=== PATIENT | male | born 1965 | race African-American/Black ===

== ENCOUNTER 2019-05-04 12:06 | Observation (INO) | payer MEDICARE, MEDICAID ==
[~2019-05-04] VITALS: Ht 180.3 cm; Wt 131.5 kg
[~2019-05-04 12:06] MED LIST: ABILIFY5 MG ORAL; ATORVASTATIN CA20 MG ORAL; CYMBALTA30 MG ORAL; DEPAKOTE250 MG PO; IBUPROFEN200 MG ORAL; LEVOTHYROXINE100 MC1 PO; LISINOPRIL5 MG ORAL; LITHIUM CARBON300 MG ORAL; RANITIDINE HCL150 MG ORAL; TRAMADOL HCL50 MG ORAL
--- NOTE | 2019-05-04 12:34 | NUR ---
ED Nurse Note: Pt walked into ED w/ c/o swelling in bilat hands and feet 2+. Pt has lump R hand. Pt is alert and orientedx4, ambulatory. Pt has pain 6/10 bilateral feet. Pt states he is homeless.
[2019-05-04 13:05] VITALS: BP 144/81
[2019-05-04 13:39] LABS: BASOPHILS % (AUTO) 2.4 % (0.0-2.0); EOSINOPHILS % (AUTO) 2.6 % (0.0-3.0); HEMATOCRIT 39.3 % (42.0-52.0); HEMOGLOBIN 13.1 G/DL (14.2-18.0); LYMPHOCYTES % (AUTO) 46.9 % (20.0-45.0); MEAN CORPUSCULAR VOLUME 87 FL (80-99); MONOCYTES % (AUTO) 7.8 % (1.0-10.0); NEUTROPHILS % (AUTO) 40.3 % (45.0-75.0); PLATELET COUNT 277 K/UL (150-450); RED BLOOD COUNT 4.54 M/UL (4.70-6.10); RED CELL DISTRIBUTION WIDTH 13.6 % (11.6-14.8); WHITE BLOOD COUNT 7.7 K/UL (4.8-10.8)
--- NOTE | 2019-05-04 13:50 | Diagnostic Imaging Report ---
Indication: Cough Technique: One view of the chest Comparison: 04/25/2019 Findings: Lungs and pleural spaces are clear. Heart size is normal. No significant interim change Impression: No acute process
--- NOTE | 2019-05-04 13:53 | NUR ---
ED Nurse Note: US initiated at bedside.
[2019-05-04 14:38] LABS: ANION GAP 11 mmol/L (5-15); BLOOD UREA NITROGEN 11 mg/dL (7-18); CALCIUM 8.9 MG/DL (8.5-10.1); CARBON DIOXIDE 28 MMOL/L (21-32); CHLORIDE 102 MMOL/L (98-107); CREATININE 0.9 MG/DL (0.55-1.30); POTASSIUM 4.4 MMOL/L (3.5-5.1); SODIUM 141 MMOL/L (136-145)
--- NOTE | 2019-05-04 14:45 | Diagnostic Imaging Report ---
Indication: Abdominal distention Technique: Us-scale and duplex images of the upper abdomen were obtained Comparison: none Findings: Exam is somewhat limited due to patient body habitus. Gallbladder is unremarkable, without stones, wall thickening, nor pericholecystic fluid. Sonographic Alejandre's sign is negative. Common bile duct measures 3 mm in diameter. No intrahepatic biliary ductal dilatation. Liver demonstrates diffusely increased echogenicity, consistent with diffuse hepatocellular disease, most likely fatty change. Portal vein and hepatic veins are patent. Pancreas is obscured by bowel gas. Spleen is unremarkable. Left kidney measures 12.9 cm in length. Right kidney measures 10 cm length. Both kidneys demonstrate normal echogenicity. There is no hydronephrosis. Small cysts are seen in the kidneys bilaterally . Abdominal aorta is partially obscured by bowel gas, visualized portions are non-aneurysmal . Impression: Limited exam, as described. Note nonvisualization of the pancreas and portions of the abdominal aorta Liver demonstrates diffusely increased echogenicity, consistent with diffuse hepatocellular disease, most likely fatty change. Negative for gallstones or dilated bile ducts Incidental finding small bilateral renal cysts
[2019-05-04 14:48] LABS: ALANINE AMINOTRANSFERASE 24 U/L (12-78); ALBUMIN 3.5 G/DL (3.4-5.0); ALBUMIN/GLOBULIN RATIO 0.8 (1.0-2.7); ALKALINE PHOSPHATASE 80 U/L (46-116); ASPARTATE AMINO TRANSFERASE 16 U/L (15-37); BILIRUBIN,TOTAL 0.3 MG/DL (0.2-1.0); CREATINE KINASE 149 U/L (26-308)
[2019-05-04 15:05] VITALS: BP 146/77
--- NOTE | 2019-05-04 15:14 | History and Physical ---
History of Present Illness General Date patient seen: May 04, 2019 Reason for Hospitalization: Edema Present Illness HPI 54 year old obese male with history of HTN, HLD, hypothyroidism and bipolar disorder sent in by his PCP Dr. Graves for evaluation of peripheral edema and weigh gain of 22 pounds over a short couple of months. Patient is homeless and lives in his car with his sister who has schizophrenia. His elderly parents whom they took care of recently . Patient denies any chest pain, sob , orthopnea, PND, palpitations, syncope, n/v/d. He feels like he is getting more and more swollen. He has chronic back pain for which he is taking Ultram and ibuprofen. In the ER he was in no distress, VSS, received Lasix. labs and imagining ordered and admitted for further work up. Past medical and surgical history: HTN, HLD, hypothyroidism, bipolar disorder, Social history: denies smoking, etoh or illicit drug use Family history: Sister: Schizophrenia Allergies: Coded Allergies: NAPROXEN (Unverified Allergy, Unknown, 11/14/13) PROPOXYPHENE (Unverified Allergy, Unknown, 11/14/13) Medication History Scheduled Aripiprazole* (Abilify*), 5 MG ORAL DAILY, (Reported) Atorvastatin Calcium* (Atorvastatin Calcium*), 20 MG ORAL BEDTIME, (Reported) Divalproex Sodium* (Depakote*), 250 MG PO TID Duloxetine Hcl* (Cymbalta*), 30 MG ORAL DAILY Scheduled PRN Tramadol Hcl* (Ultram*), 50 MG ORAL Q6H PRN for For Pain, (Reported) Discontinued Medications Ibuprofen (Ibuprofen*), 800 MG ORAL, (Reported) Discontinued Reason: Therapy completed Levothyroxine Sodium* (Levothyroxine Sodium*), 50 MCG PO DAILY, (Reported) Discontinued Reason: Therapy completed Lisinopril (Lisinopril*), 10 MG ORAL DAILY, (Reported) Discontinued Reason: Therapy completed [place] Carbonate* ([place]*), 300 MG ORAL ONCE Discontinued Reason: Therapy completed Ranitidine Hcl* (Zantac*), 300 MG ORAL DAILY, (Reported) Discontinued Reason: Therapy completed Patient History Healthcare decision maker Resuscitation status Advanced Directive on File Review of Systems Constitutional: Reports: weakness Eye: Denies: no symptoms, see HPI, eye pain, blurred vision, tearing, double vision, nose pain, nose congestion, acuity changes, discharge, other ENT: Denies: no symptoms, see HPI, ear pain, ear discharge, nose pain, nose congestion, throat pain, throat swelling, mouth pain, hearing loss, nasal discharge, other Respiratory: Denies: no symptoms, see HPI, cough, orthopnea, shortness of breath, stridor, wheezing, GEE, sputum, other Cardiovascular: Reports: edema Gastrointestinal: Denies: no symptoms, see HPI, abdominal pain, constipation, diarrhea, nausea, vomiting, melena, hematemesis, other Genitourinary: Denies: no symptoms, see HPI, discharge, dysuria, frequency, hematuria, pain, retention, incontinence, urgency, vag bleed/dc, other Musculoskeletal: Denies: no symptoms, see HPI, back pain, gout, joint pain, joint swelling, muscle pain, muscle stiffness, other Skin: Denies: no symptoms, see HPI, rash, change in color, change in hair/nails , dryness, lesions, other Psychiatric: Denies: no symptoms, see HPI, prior hx, anxiety, depressed feelings, emotional problems, SI, HI, hallucinations, other Neurological: Denies: no symptoms, see HPI, headache, numbness, paresthesia, seizure, tingling, tremors, focal weakness, syncope, dizziness, other Endocrine: Reports: other - weight gain 20 lbs Hematologic/Lymphatic: Denies: no symptoms, see HPI, anemia, blood clots, easy bleeding, easy bruising, swollen glands, diathesis, other Physical Exam General Appearance: no apparent distress, obese, morbidly obese Lines, tubes and drains: peripheral HEENT: normocephalic, atraumatic, anicteric, mucous membranes moist, PERRL, EOMI, no JVD Neck: non-tender, supple Respiratory/Chest: chest wall non-tender, lungs clear, normal breath sounds, no respiratory distress, no accessory muscle use Cardiovascular/Chest: normal peripheral pulses, normal rate, regular rhythm Abdomen: normal bowel sounds, non tender, soft, no organomegaly, no mass, other - obese Extremities: normal range of motion, non-tender, normal inspection, moderate edema, pitting, other - non tender bilateral calf, no erythema Skin Exam: normal pigmentation Neurologic: screen tender II-XII grossly normal, no motor/sensory deficits, oriented x 3 , responsive Musculoskeletal: normal muscle bulk Last 24 Hour Vital Signs Date Time Temp Pulse Resp B/P (MAP) Pulse Ox O2 Delivery O2 Flow Rate FiO2 05/04/19 13:05 97.9 87 18 144/81 96 Room Air 05/04/19 13:05 87 18 Room Air 05/04/19 12:10 97.9 87 18 130/75 (93) 96 Room Air Laboratory Tests Test 05/04/19 13:10 White Blood Count 7.7 K/UL (4.8-10.8) Red Blood Count 4.54 M/UL (4.70-6.10) L Hemoglobin 13.1 G/DL (14.2-18.0) L Hematocrit 39.3 % (42.0-52.0) L Mean Corpuscular Volume 87 FL (80-99) Mean Corpuscular Hemoglobin 28.9 PG (27.0-31.0) Mean Corpuscular Hemoglobin Concent 33.3 G/DL (32.0-36.0) Red Cell Distribution Width 13.6 % (11.6-14.8) Platelet Count 277 K/UL (150-450) Mean Platelet Volume 7.0 FL (6.5-10.1) Neutrophils (%) (Auto) 40.3 % (45.0-75.0) L Lymphocytes (%) (Auto) 46.9 % (20.0-45.0) H Monocytes (%) (Auto) 7.8 % (1.0-10.0) Eosinophils (%) (Auto) 2.6 % (0.0-3.0) Basophils (%) (Auto) 2.4 % (0.0-2.0) H Sodium Level 141 MMOL/L (136-145) Potassium Level 4.4 MMOL/L (3.5-5.1) Chloride Level 102 MMOL/L (98-107) Carbon Dioxide Level 28 MMOL/L (21-32) Anion Gap 11 mmol/L (5-15) Blood Urea Nitrogen 11 mg/dL (7-18) Creatinine 0.9 MG/DL (0.55-1.30) Estimat Glomerular Filtration Rate > 60 mL/min (>60) Glucose Level 118 MG/DL (74-106) H Calcium Level 8.9 MG/DL (8.5-10.1) Total Bilirubin 0.3 MG/DL (0.2-1.0) Aspartate Amino Transf (AST/SGOT) 16 U/L (15-37) Alanine Aminotransferase (ALT/SGPT) 24 U/L (12-78) Alkaline Phosphatase 80 U/L (46-116) Total Creatine Kinase 149 U/L (26-308) Troponin I 0.000 ng/mL (0.000-0.056) Pro-B-Type Natriuretic Peptide 7 pg/mL (0-125) Total Protein 7.7 G/DL (6.4-8.2) Albumin 3.5 G/DL (3.4-5.0) Globulin 4.2 g/dL Albumin/Globulin Ratio 0.8 (1.0-2.7) L Height (Feet): 5 Height (Inches): 11.00 Weight (Pounds): 295 Objective Narrative cxr: No acute process US abdomen pelvis: Fatty liver, no gallstones, incidental bilateral renal cysts EKG personally interpreted by me: NSR at81 bpm, RBBB, Qtc 476 Assessment/Plan Problem List: (1) Bilateral lower extremity edema ICD Codes: R60.0 - Localized edema SNOMED: 05571299, 98712617, 173225801 (2) HTN (hypertension) ICD Codes: I10 - Essential (primary) hypertension SNOMED: 35658170 (3) HLD (hyperlipidemia) ICD Codes: E78.5 - Hyperlipidemia, unspecified SNOMED: 94485142 (4) Bipolar disorder ICD Codes: F31.9 - Bipolar disorder, unspecified SNOMED: 10691291 (5) Hypothyroidism ICD Codes: E03.9 - Hypothyroidism, unspecified SNOMED: 64038217 (6) Obesity, morbid, BMI 40.0-49.9 ICD Codes: E66.01 - Morbid (severe) obesity due to excess calories SNOMED: 598233815, 217207790, 16346783178287 Status: stable Assessment/Plan: 54 year old male admitted with bilateral lower extremity edema and weight gain of 22 lbs over a short period. His labs so far are not impressive and don't suggest acute heart failure or low albumin state such as acute nephrotic syndrome. His cxr showed no acute process. Abdominal US revealed fatty liver. Less common however could be related to NSAIDs side effect. ddx includes chronic venous stasis disease, pulmonary hypertension, renal or liver disease, related to his hypothyroidism. #Bilateral lower extremity edema and 22 lbs weight gain Doppler bilateral lower extremities to rule out DVT/obstruction Liver function tests Thyroid function tests Prothrombin time 2D echocardiogram if all above negative imagining will obtain imagining of the pelvis to exclude venous outflow obstruction #Hypothyroidism continue Synthroid 50 mcg daily for now, may need to adjust based on TFTs especially since he is on [place] #HTN continue lisinopril 10mg daily #HLD continue Lipitor 10 check CK levels #Bipolar disorder/depression continue Cymbalta 60, Depakote 250 mg TID, [place] 300 mg QD, Abilify 5 mg daily check Depakote and lithium levels currently stable #Chronic lower back pain continue Tramadol Hold NSAIDs vte ppx:SCD and heparin subq q12 hr Diet: Low salt SW consult for placement I spent 70 minutes on this encounter. Greater than 50% spent on counselling and care coordination. Plan of care discussed with patient, ED physician, and his PCP Dr. Edgar Graves. Darrius Fleming M.D. May 04, 2019 15:14
--- NOTE | 2019-05-04 16:10 | NUR ---
ED Nurse Note: social sciences chair at bedside.
--- NOTE | 2019-05-04 16:20 | NUR ---
Social Work This SW received a consult due to homelessness. This SW met with patient, currently in the ED (who will be admitted due to swelling of his legs/feet). Patient appears pleasant and cooperative, alert/oriented x4, independent with ambulation/ADLs and does not require any DME. Patient explains he receives SSI over 900 dollars per month, but has spent this money down. This Sw advised Board/Care, Transitional housing or Shared housing once he has received his full months check (beginning of next month). Patient in agreement with [facility] placement (list of shelters and housing options provided to patient). Patient currently does not verbalize any substance abuse or mental health concerns (currently does not verbalize any depression or SI/HI). Patient has adequate amount of clothing. Pending progress; SW to follow further as needed. Nursing to assist with bus card upon discharge, according to patients choice of destination. No other needs or concerns present at this time.
--- NOTE | 2019-05-04 19:17 | NUR ---
HAND-OFF: Report given to MARIPOSA Duvall. no orders to carry at this moment. waiting for doppler.
[2019-05-04] MEDS ORDERED: Lisinopril 10mg tab ORAL ONE (20:00)
[2019-05-04] MEDS ORDERED: Atorvastatin 20mg tab ORAL ONE (20:00)
[2019-05-04] MEDS ORDERED: DULoxetine 30mg cap ORAL ONE (20:00)
[2019-05-04] MEDS ORDERED: traMADol 50mg tab ORAL ONE (20:00)
--- NOTE | 2019-05-04 20:05 | NUR ---
ED Nurse Note: Pt requesting his at home meds, Dr Roldan contacted and verbal order given for one time doses for medications in med rec.
[2019-05-04 20:36] VITALS: BP 138/70
--- NOTE | 2019-05-04 20:55 | NUR ---
TRANSFER TO FLOOR: Patient transferred to as ordered, per Dr Spicer. Report given to MARIPOSA Celeste. Belongings and medications given to . Family and or S/O informed of transfer.
--- NOTE | 2019-05-04 21:30 | NUR ---
NURSE NOTES: Admitted patient awake, alert, verbal, ambulatory, no SOB, with essentially normal vital signs.
[2019-05-04 21:47] VITALS: BP 136/78
[2019-05-04] MEDS ORDERED: Zolpidem 5mg tab ORAL PRN (22:15)
[2019-05-04] MEDS ORDERED: LORazepam 1mg tab ORAL PRN (22:15)
[2019-05-04] MEDS ORDERED: traMADol 50mg tab ORAL PRN ×2 (22:15)
[2019-05-04] MEDS ORDERED: Acetaminophen 650 MG SUPP RECTAL PRN ×2 (22:15)
[2019-05-04] MEDS ORDERED: Miralax 17gm pkt ORAL PRN (22:15)
[2019-05-04] MEDS ORDERED: Nitroglycerin Subl 0.4mg tab SL PRN (22:15)
[2019-05-04] MEDS ORDERED: Metoclopramide 10mg/2ml Inj IVP PRN (22:15)
[2019-05-04] MEDS ORDERED: Milk of Magnesia 30ml Ud ORAL PRN (22:15)
[2019-05-05 00:38] VITALS: BP 122/71
[2019-05-05 04:00] VITALS: BP 114/68
[2019-05-05 06:42] LABS: APPEARANCE,URINE CLEAR; BILIRUBIN, URINE NEGATIVE (NEGATIVE); COLOR,URINE PALE YELLOW; GLUCOSE, URINE (UA) NEGATIVE (NEGATIVE); KETONES,URINE NEGATIVE (NEGATIVE); LEUKOCYTE ESTERASE ,URINE NEGATIVE (NEGATIVE); NITRITE,URINE NEGATIVE (NEGATIVE); PH,URINE 7 (4.5-8.0); PROTEIN,URINE NEGATIVE (NEGATIVE); UROBILINOGEN,URINE NORMAL MG/DL (0.0-1.0)
[2019-05-05 06:57] LABS: BASOPHILS % (AUTO) 0.9 % (0.0-2.0); EOSINOPHILS % (AUTO) 2.9 % (0.0-3.0); HEMATOCRIT 38.8 % (42.0-52.0); HEMOGLOBIN 13.1 G/DL (14.2-18.0); MEAN CORPUSCULAR VOLUME 87 FL (80-99); MONOCYTES % (AUTO) 10.8 % (1.0-10.0); NEUTROPHILS % (AUTO) 43.4 % (45.0-75.0); PLATELET COUNT 269 K/UL (150-450); RED BLOOD COUNT 4.46 M/UL (4.70-6.10); RED CELL DISTRIBUTION WIDTH 13.4 % (11.6-14.8); WHITE BLOOD COUNT 7.6 K/UL (4.8-10.8)
[2019-05-05 07:16] LABS: ALANINE AMINOTRANSFERASE 26 U/L (12-78); ALBUMIN 3.3 G/DL (3.4-5.0); ALBUMIN/GLOBULIN RATIO 0.8 (1.0-2.7); ALKALINE PHOSPHATASE 83 U/L (46-116); ANION GAP 6 mmol/L (5-15); ASPARTATE AMINO TRANSFERASE 16 U/L (15-37); BILIRUBIN,TOTAL 0.4 MG/DL (0.2-1.0); BLOOD UREA NITROGEN 14 mg/dL (7-18); CARBON DIOXIDE 31 MMOL/L (21-32); CHLORIDE 102 MMOL/L (98-107); POTASSIUM 4.6 MMOL/L (3.5-5.1); SODIUM 139 MMOL/L (136-145)
--- NOTE | 2019-05-05 07:17 | NUR ---
HAND-OFF: Report given to Hanh Flanagan LVN.
--- NOTE | 2019-05-05 07:25 | NUR ---
NURSE NOTES: Received report from MARIPOSA Davila. Patient A/A/Ox4. verbally responsive, ambulatory, no SOB or distress noted. consumed 100% breakfast. call light is within reach. bed is in the lowest position. siderails are up x3. bed alarm engaged and locked. will cont to monitor.
[2019-05-05 08:00] VITALS: BP 131/72
[2019-05-05] MEDS: Docusate 100mg cap ORAL SCH ×2 (08:16→20:54)
[2019-05-05] MEDS: oxyCODONE 5mg IR tab ORAL PRN (08:16)
[2019-05-05] MEDS: Heparin 5000 units/ml inj SUBQ SCH ×2 (08:20→20:54)
[2019-05-05 10:09] LABS: CHOLESTEROL 140 MG/DL (< 200); HDL CHOLESTEROL 57 MG/DL (40-60); TRIGLYCERIDES 68 MG/DL (30-150)
[2019-05-05 10:46] LABS: CREATINE KINASE 198 U/L (26-308)
[2019-05-05 11:57] VITALS: BP 119/71
--- NOTE | 2019-05-05 12:05 | NUR ---
PT note Attempted to see patient for eval/tx but patient has an order for venous duplex to BLE's. This has not been done yet. Will wait for results of the venous duplex prior to implementing PT eval/tx. RN was notified.
--- NOTE | 2019-05-05 14:56 | Diagnostic Imaging Report ---
EXAM: US Duplex Bilateral Lower Extremity Veins CLINICAL HISTORY: WEAK TECHNIQUE: Real-time duplex ultrasound scan of the bilateral lower extremity veins integrating B-mode two-dimensional vascular structure, Doppler spectral analysis, color flow Doppler imaging and compression. COMPARISON: No relevant prior studies available. FINDINGS: Right deep veins: Unremarkable. No DVT in the right common femoral, femoral, proximal deep femoral or popliteal veins. The veins demonstrate normal color flow, are normally compressible, with normal phasic flow and/or augmentation response. Right superficial veins: Unremarkable. Left deep veins: Unremarkable. No DVT in the left common femoral, femoral, proximal deep femoral or popliteal veins. The veins demonstrate normal color flow, are normally compressible, with normal phasic flow and/or augmentation response. Left superficial veins: Unremarkable. Soft tissues: No popliteal cyst. IMPRESSION: Unremarkable bilateral lower extremity duplex venous ultrasound.
[2019-05-05 16:00] VITALS: BP 130/75
--- NOTE | 2019-05-05 17:49 | NUR ---
NURSE NOTES: Dr Roldan made aware of the lithium 300mg qdaily stated by patient that is not on the list. PMD will f/u. will cont to monitor.
--- NOTE | 2019-05-05 19:13 | NUR ---
HAND-OFF: Report given to
[2019-05-05 20:01] VITALS: BP 109/75
--- NOTE | 2019-05-05 20:13 | NUR ---
NURSE NOTES: Received patient awake, alert, verbal, ambulatory, resting in bed comfortably without complaints.
--- NOTE | 2019-05-05 20:38 | General Progress Note ---
Assessment/Plan Status: stable Assessment/Plan: 54 year old male admitted with bilateral lower extremity edema and weight gain of 22 lbs over a short period. His labs so far are not impressive and don't suggest acute heart failure or low albumin state such as acute nephrotic syndrome. His cxr showed no acute process. Abdominal US revealed fatty liver. Less common however could be related to NSAIDs side effect. ddx includes chronic venous stasis disease, pulmonary hypertension, renal or liver disease, related to his hypothyroidism. #Bilateral lower extremity edema and 22 lbs weight gain Doppler bilateral lower extremities to rule out DVT/obstruction Liver function tests Thyroid function tests Prothrombin time 2D echocardiogram if all above negative imagining will obtain imagining of the pelvis to exclude venous outflow obstruction #Hypothyroidism continue Synthroid 50 mcg daily for now, may need to adjust based on TFTs especially since he is on [place] #HTN continue lisinopril 10mg daily #HLD continue Lipitor 10 check CK levels #Bipolar disorder/depression continue Cymbalta 60, Depakote 250 mg TID, [place] 300 mg QD, Abilify 5 mg daily check Depakote and lithium levels currently stable #Chronic lower back pain continue Tramadol Hold NSAIDs vte ppx:SCD and heparin subq q12 hr Diet: Low salt SW consult for placement I spent 40 minutes on this encounter. Greater than 50% spent on counselling and care coordination. Plan of care discussed with patient, ED physician, and his PCP Dr. Edgar Graves. Subjective Date patient seen: May 05, 2019 Allergies: Coded Allergies: NAPROXEN (Unverified Allergy, Unknown, 11/14/13) PROPOXYPHENE (Unverified Allergy, Unknown, 11/14/13) Subjective Denies chest pain,, fevers, chills Objective Last 24 Hour Vital Signs Date Time Temp Pulse Resp B/P (MAP) Pulse Ox O2 Delivery O2 Flow Rate FiO2 05/05/19 20:28 Room Air 05/05/19 20:01 98.2 94 18 109/75 (86) 97 05/05/19 16:00 98.0 90 18 130/75 (93) 93 05/05/19 11:57 97.7 81 17 119/71 (87) 93 05/05/19 09:00 Room Air 05/05/19 08:00 98.9 86 18 131/72 (91) 97 05/05/19 04:00 98.2 82 20 114/68 (83) 94 05/05/19 00:38 97.9 95 20 122/71 (88) 96 05/04/19 21:47 98.0 93 20 136/78 (97) 95 05/04/19 21:46 Room Air 05/04/19 20:55 98.4 88 16 138/70 99 Room Air Intake and Output 05/04/19 05/05/19 19:00 07:00 Intake Total 0 ml 460 ml Balance 0 ml 460 ml Intake Oral 0 ml 460 ml # Voids 2 Laboratory Tests 05/05/19 05:00: Urine Color Pale yellow, Urine Appearance Clear, Urine pH 7, Urine Specific [place] 1.005, Urine Protein Negative, Urine Glucose (UA) Negative, Urine Ketones Negative, Urine Blood Negative, Urine Nitrite Negative, Urine Bilirubin Negative, Urine Urobilinogen Normal, Urine Leukocyte Esterase Negative 05/05/19 06:15: Total Creatine Kinase 198, [place] Level [Pending] 05/05/19 06:30: White Blood Count 7.6, Red Blood Count 4.46L, Hemoglobin 13.1L, Hematocrit 38.8L , Mean Corpuscular Volume 87, Mean Corpuscular Hemoglobin 29.5, Mean Corpuscular Hemoglobin Concent 33.8, Red Cell Distribution Width 13.4, Platelet Count 269, Mean Platelet Volume 7.1, Neutrophils (%) (Auto) 43.4L, Lymphocytes ( %) (Auto) 42.0, Monocytes (%) (Auto) 10.8H, Eosinophils (%) (Auto) 2.9, Basophils (%) (Auto) 0.9, Sodium Level 139, Potassium Level 4.6, Chloride Level 102, Carbon Dioxide Level 31, Anion Gap 6, Blood Urea Nitrogen 14, Creatinine 1.0, Estimat Glomerular Filtration Rate > 60, Glucose Level 137H, Calcium Level 9.0, Total Bilirubin 0.4, Aspartate Amino Transf (AST/SGOT) 16, Alanine Aminotransferase (ALT/SGPT) 26, Alkaline Phosphatase 83, Total Protein 7.5, Albumin 3.3L, Globulin 4.2, Albumin/Globulin Ratio 0.8L, Triglycerides Level 68 , Cholesterol Level 140, LDL Cholesterol 72, HDL Cholesterol 57, Cholesterol/ HDL Ratio 2.5L, Thyroid Stimulating Hormone (TSH) 3.905H, Free Thyroxine 1.08, Valproic Acid (Depakene) Level 43L 05/05/19 11:05: Prothrombin Time 10.7, Prothromb Time International Ratio 1.0 Height (Feet): 5 Height (Inches): 11.00 Weight (Pounds): 292 Objective GENERAL: No acute distress, appears comfortable, alert HEENT: NCAT, non-icteric eyes, pupils PERRLA Neck: No cervical lymphadenopathy, trachea midline CV: Regular rate and rhythm, no murmurs rubs or gallops RESP: Clear to auscultation bilaterally, no wheezes/rhonchi/crackles ABD: soft, non-distended, no TTP EXT: Normal muscle tone, +5/5 muscle strength NEURO: No obvious deficits, alert and oriented x3 Janice Roldan DO May 05, 2019 20:38
[2019-05-06 04:30] VITALS: BP 120/72
--- NOTE | 2019-05-06 07:18 | NUR ---
HAND-OFF: Report given to Hanh Flanagan LVN.
--- NOTE | 2019-05-06 07:42 | NUR ---
NURSE NOTES: Received report from MARIPOSA Davila. Patient A/A/Ox4. verbally responsive, ambulatory, no SOB or distress noted. call light is within reach. bed is in the lowest position. siderails are up x3. bed alarm engaged and locked. will cont to monitor.
[2019-05-06 08:00] VITALS: BP 131/94
[2019-05-06] MEDS: Docusate 100mg cap ORAL SCH ×2 (08:33→20:30)
[2019-05-06] MEDS: Heparin 5000 units/ml inj SUBQ SCH ×2 (08:33→20:30)
--- NOTE | 2019-05-06 08:48 | Emergency Room Report ---
History of Present Illness General Chief Complaint: Edema Source: Patient, Medical Record Present Illness HPI Patient was here recently has had increased edema and swelling diffusely Denies any recent change in medications denies any headache denies any chest pain Patient reports that he has been living through his car Previous work-up did not show any acute process patient has made contact with his primary physician And at this time was requested to return back to emergency room for further evaluation Denies any vomiting or diarrhea denies any recent travel denies any cough or shortness of breath Allergies: Coded Allergies: NAPROXEN (Unverified Allergy, Unknown, 11/14/13) PROPOXYPHENE (Unverified Allergy, Unknown, 11/14/13) Patient History Past Medical History: see triage record Reviewed Nursing Documentation: PMH: Agreed; PSxH: Agreed Nursing Documentation-PMH Past Medical History: No History, Except For Hx Cardiac Problems: Yes Hx Hypertension: Yes History Of Psychiatric Problem: Yes - DEPRESSION. Review of Systems All Other Systems: negative except mentioned in HPI Physical Exam Vital Signs Date Time Temp Pulse Resp B/P (MAP) Pulse Ox O2 Delivery O2 Flow Rate FiO2 05/04/19 12:10 97.9 87 18 130/75 (93) 96 Room Air Sp02 EP Interpretation: reviewed, normal General Appearance: well appearing, no apparent distress Head: normocephalic, atraumatic Eyes: bilateral eye PERRL, bilateral eye EOMI ENT: hearing grossly normal, normal pharynx, TMs + canals normal, uvula midline Neck: full range of motion, supple, no meningismus, no bony tend Respiratory: lungs clear, normal breath sounds, no rhonchi, no respiratory distress, no retraction, no accessory muscle use Cardiovascular #1: normal peripheral pulses, regular rate, rhythm, no gallop, no JVD, no murmur Gastrointestinal: normal bowel sounds, non tender, soft, no mass, no organomegaly, non-distended, no guarding, no hernia, no pulsatile mass, no rebound Genitourinary: no CVA tenderness Musculoskeletal: normal inspection Neurologic: motor strength/tone normal, personal lines advisor III-XII nml as tested, oriented x3 , sensory intact, responsive Psychiatric: mood/affect normal Skin: other - Patient shows significant edema diffusely facial area reveals edema, 2 out of 4 pitting edema in both legs upper extremity also shows edematous findings and the patient's abdomen is mildly distended with likely, ascites Lymphatic: normal inspection, no adenopathy Medical Decision Making Diagnostic Impression: Primary Impression: Weakness Additional Impression: Edema ER Course Patient is a fairly complex patient with multiple differential to consideration including but not limited to cardiac cardiopulmonary and vascular emergencies Patient's work-up otherwise is fairly benign consistent with previous work-up ultrasound does show some evidence of liver disease Patient was also provided with diuretics and at this time admitted for further care Labs Test 05/04/19 13:10 05/05/19 05:00 05/05/19 06:15 05/05/19 06:30 White Blood Count 7.7 K/UL (4.8-10.8) 7.6 K/UL (4.8-10.8) Red Blood Count 4.54 M/UL (4.70-6.10) 4.46 M/UL (4.70-6.10) Hemoglobin 13.1 G/DL (14.2-18.0) 13.1 G/DL (14.2-18.0) Hematocrit 39.3 % (42.0-52.0) 38.8 % (42.0-52.0) Mean Corpuscular Volume 87 FL (80-99) 87 FL (80-99) Mean Corpuscular Hemoglobin 28.9 PG (27.0-31.0) 29.5 PG (27.0-31.0) Mean Corpuscular Hemoglobin Concent 33.3 G/DL (32.0-36.0) 33.8 G/DL (32.0-36.0) Red Cell Distribution Width 13.6 % (11.6-14.8) 13.4 % (11.6-14.8) Platelet Count 277 K/UL (150-450) 269 K/UL (150-450) Mean Platelet Volume 7.0 FL (6.5-10.1) 7.1 FL (6.5-10.1) Neutrophils (%) (Auto) 40.3 % (45.0-75.0) 43.4 % (45.0-75.0) Lymphocytes (%) (Auto) 46.9 % (20.0-45.0) 42.0 % (20.0-45.0) Monocytes (%) (Auto) 7.8 % (1.0-10.0) 10.8 % (1.0-10.0) Eosinophils (%) (Auto) 2.6 % (0.0-3.0) 2.9 % (0.0-3.0) Basophils (%) (Auto) 2.4 % (0.0-2.0) 0.9 % (0.0-2.0) Sodium Level 141 MMOL/L (136-145) 139 MMOL/L (136-145) Potassium Level 4.4 MMOL/L (3.5-5.1) 4.6 MMOL/L (3.5-5.1) Chloride Level 102 MMOL/L (98-107) 102 MMOL/L (98-107) Carbon Dioxide Level 28 MMOL/L (21-32) 31 MMOL/L (21-32) Anion Gap 11 mmol/L (5-15) 6 mmol/L (5-15) Blood Urea Nitrogen 11 mg/dL (7-18) 14 mg/dL (7-18) Creatinine 0.9 MG/DL (0.55-1.30) 1.0 MG/DL (0.55-1.30) Estimat Glomerular Filtration Rate > 60 mL/min (>60) > 60 mL/min (>60) Glucose Level 118 MG/DL (74-106) 137 MG/DL (74-106) Calcium Level 8.9 MG/DL (8.5-10.1) 9.0 MG/DL (8.5-10.1) Total Bilirubin 0.3 MG/DL (0.2-1.0) 0.4 MG/DL (0.2-1.0) Aspartate Amino Transf (AST/SGOT) 16 U/L (15-37) 16 U/L (15-37) Alanine Aminotransferase (ALT/SGPT) 24 U/L (12-78) 26 U/L (12-78) Alkaline Phosphatase 80 U/L (46-116) 83 U/L (46-116) Total Creatine Kinase 149 U/L (26-308) 198 U/L (26-308) Troponin I 0.000 ng/mL (0.000-0.056) Pro-B-Type Natriuretic Peptide 7 pg/mL (0-125) Total Protein 7.7 G/DL (6.4-8.2) 7.5 G/DL (6.4-8.2) Albumin 3.5 G/DL (3.4-5.0) 3.3 G/DL (3.4-5.0) Globulin 4.2 g/dL 4.2 g/dL Albumin/Globulin Ratio 0.8 (1.0-2.7) 0.8 (1.0-2.7) Urine Color Pale yellow Urine Appearance Clear Urine pH 7 (4.5-8.0) Urine Specific [place] 1.005 (1.005-1.035) Urine Protein Negative (NEGATIVE) Urine Glucose (UA) Negative (NEGATIVE) Urine Ketones Negative (NEGATIVE) Urine Blood Negative (NEGATIVE) Urine Nitrite Negative (NEGATIVE) Urine Bilirubin Negative (NEGATIVE) Urine Urobilinogen Normal MG/DL (0.0-1.0) Urine Leukocyte Esterase Negative (NEGATIVE) Triglycerides Level 68 MG/DL (30-150) Cholesterol Level 140 MG/DL (< 200) LDL Cholesterol 72 mg/dL (<100) HDL Cholesterol 57 MG/DL (40-60) Cholesterol/HDL Ratio 2.5 (3.3-4.4) Thyroid Stimulating Hormone (TSH) 3.905 uiU/mL (0.358-3.740) Free Thyroxine 1.08 NG/DL (0.76-1.46) Valproic Acid (Depakene) Level 43 MCG/ML (50-100) Test 05/05/19 11:05 Prothrombin Time 10.7 SEC (9.30-11.50) Prothromb Time International Ratio 1.0 (0.9-1.1) Rhythm Strip Diag. Results EP Interpretation: yes Rate: 88 Rhythm: NSR, no PVC's, no ectopy Chest X-Ray Diagnostic Results Chest X-Ray Diagnostic Results : Chest X-Ray Ordered: Yes # of Views/Limited/Complete: 1 View Indication: Other - Swelling EP Interpretation: Yes Interpretation: no consolidation, no effusion, no pneumothorax Impression: No acute disease Electronically Signed by: Richie Lindsay DO CT/MRI/US Diagnostic Results CT/MRI/US Diagnostic Results : Impression Abdominal ultrasoundImpression: Limited exam, as described. Note nonvisualization of the pancreas and portions of the abdominal aorta Liver demonstrates diffusely increased echogenicity, consistent with diffuse hepatocellular disease, most likely fatty change. Negative for gallstones or dilated bile ducts Incidental finding small bilateral renal cysts Last Vital Signs Date Time Temp Pulse Resp B/P (MAP) Pulse Ox O2 Delivery O2 Flow Rate FiO2 05/06/19 08:00 97.5 86 20 131/94 (106) 94 05/05/19 20:28 Room Air Status: improved Disposition: ADMITTED INPATIENT Condition: Serious Referrals: Edgar Graves MD (PCP) Richie Lindsay DO May 06, 2019 08:47
--- NOTE | 2019-05-06 10:41 | NUR ---
PT note PT magdalena completed. Patient is ambulatory without any AD. He has LE edema. Patient was educated on HEP's and positioning techniques to aid in decreasing his LE edema. Patient was instructed to follow through with instructions on HEP and positioning techniques. Patient verbalized his understanding. Patient does not require any f/u PT services any more at this time. Addendum: 05/06/19 at 1042 by MEEK LOMBARDI PT Amended: Links added.
[2019-05-06 12:07] VITALS: BP 123/78
[2019-05-06] MEDS: oxyCODONE 5mg IR tab ORAL PRN ×2 (15:00→21:37)
[2019-05-06 15:52] VITALS: BP 131/73
--- NOTE | 2019-05-06 19:03 | NUR ---
HAND-OFF: Report given to LYNN.
--- NOTE | 2019-05-06 19:30 | NUR ---
NURSE NOTES: Patient awake in bed, alert and oriented x4, lower extremities elevated on pillows. Instructed to use call light for assistance. Bed in lowest and lock engaged. Will continue to monitor.
[2019-05-06 20:00] VITALS: BP 136/81
--- NOTE | 2019-05-06 22:58 | General Progress Note ---
Assessment/Plan Status: stable Assessment/Plan: 54 year old male admitted with bilateral lower extremity edema and weight gain of 22 lbs over a short period. His labs so far are not impressive and don't suggest acute heart failure or low albumin state such as acute nephrotic syndrome. His cxr showed no acute process. Abdominal US revealed fatty liver. Less common however could be related to NSAIDs side effect. ddx includes chronic venous stasis disease, pulmonary hypertension, renal or liver disease, related to his hypothyroidism. #Bilateral lower extremity edema and 22 lbs weight gain Doppler bilateral lower extremities to rule out DVT/obstruction Liver function tests Thyroid function tests Prothrombin time 2D echocardiogram if all above negative imagining will obtain imagining of the pelvis to exclude venous outflow obstruction #Hypothyroidism continue Synthroid 50 mcg daily for now, may need to adjust based on TFTs especially since he is on [place] #HTN continue lisinopril 10mg daily #HLD continue Lipitor 10 check CK levels #Bipolar disorder/depression continue Cymbalta 60, Depakote 250 mg TID, [place] 300 mg QD, Abilify 5 mg daily check Depakote and lithium levels currently stable #Chronic lower back pain continue Tramadol Hold NSAIDs vte ppx:SCD and heparin subq q12 hr Diet: Low salt SW consult for placement I spent 40 minutes on this encounter. Greater than 50% spent on counselling and care coordination. Plan of care discussed with patient, ED physician, and his PCP Dr. Edgar Graves. Subjective Date patient seen: May 06, 2019 Allergies: Coded Allergies: NAPROXEN (Unverified Allergy, Unknown, 11/14/13) PROPOXYPHENE (Unverified Allergy, Unknown, 11/14/13) Subjective Denies chest pain,, fevers, chills admits to improved l/e edema with leg elevation Objective Last 24 Hour Vital Signs Date Time Temp Pulse Resp B/P (MAP) Pulse Ox O2 Delivery O2 Flow Rate FiO2 05/06/19 20:00 97.7 87 19 136/81 (99) 98 05/06/19 15:52 97.9 93 21 131/73 (92) 99 05/06/19 12:07 98.0 87 18 123/78 (93) 98 05/06/19 09:00 Room Air 05/06/19 08:00 97.5 86 20 131/94 (106) 94 05/06/19 04:30 98.1 86 18 120/72 (88) 98 Intake and Output 05/05/19 05/06/19 19:00 07:00 Intake Total 2400 ml Balance 2400 ml Intake Oral 800 ml Other 1600 ml # Voids 3 Height (Feet): 5 Height (Inches): 11.00 Weight (Pounds): 294 Objective GENERAL: No acute distress, appears comfortable, alert HEENT: NCAT, non-icteric eyes, pupils PERRLA Neck: No cervical lymphadenopathy, trachea midline CV: Regular rate and rhythm, no murmurs rubs or gallops RESP: Clear to auscultation bilaterally, no wheezes/rhonchi/crackles ABD: soft, non-distended, no TTP EXT: Normal muscle tone, +5/5 muscle strength NEURO: No obvious deficits, alert and oriented x3 Janice Roldan DO May 06, 2019 22:58
[2019-05-07] VITALS: BP 142/82
[2019-05-07 04:00] VITALS: BP 128/72
[2019-05-07] MEDS: oxyCODONE 5mg IR tab ORAL PRN (05:34)
--- NOTE | 2019-05-07 07:25 | NUR ---
NURSE NOTES: Received report from MARIPOSA Booth. Patient A/A/Ox4. Able to make things known. ambulatory, no SOB or distress noted. call light is within reach. bed is in the lowest position. siderails are up x2. bed alarm engaged and locked. will cont to monitor.
--- NOTE | 2019-05-07 07:38 | NUR ---
HAND-OFF: Report given to Hanh.
[2019-05-07 08:00] VITALS: BP 122/82
[2019-05-07] MEDS: Heparin 5000 units/ml inj SUBQ SCH (08:15)
[2019-05-07] MEDS: Docusate 100mg cap ORAL SCH (08:15)
--- NOTE | 2019-05-07 10:12 | NUR ---
PASTA [employer] PROGRESS NOTE SW received a notification on 05/04/2019 that pt has social service concerns. Pt met w/ MUSA Cortés on 05/04/2019. SW met w/ pt on 05/07/2019 to assess his mood and for any needs. Pt presents as A&O 4x, cooperative w/ bright affect. Pt reports he plans to go to his brother Liu Drake's house [address] [place] [address] upon DC. Per pt, Liu is aware of his hospitalization. Pt declined to provide consent to contact Liu and stated that pt will discuss his DC placement w/ his brother. Pt did not share any concern/issue/needs at this time. Signed: 05/07/19 at 1016 by GISSELLE BECKER <Co-Signature Required>
--- NOTE | 2019-05-07 11:11 | NUR ---
NURSE NOTES: called Dr Fleming and f/u the lithium med. made a call to the lab, spoke with Turner for the lithium result. awaits for a callback.
[2019-05-07 12:00] VITALS: BP 119/76
[2019-05-07] MEDS ORDERED: LEVOTHYROXINE175 MCG ORAL (15:42)
[2019-05-07] MEDS ORDERED: FUROSEMIDE20 M1 ORAL (15:42)
--- NOTE | 2019-05-07 15:50 | Discharge Summary ---
Discharge Summary Hospital Course Date of Admission May 04, 2019 at 13:20 Date of Discharge 05/07/2019 Admitting Diagnosis *ADMIT: edema, weakness HPI Saul Drake is a 54 year old male who was admitted on May 04, 2019 at 13:20 for Edema,Weakness Procedures US Doppler lower ext 2D echocardiogram Hospital Course 54 year old male admitted with bilateral lower extremity edema and weight gain of 22 lbs over a short period. His labs so far are not impressive and don't suggest acute heart failure or low albumin state such as acute nephrotic syndrome. His cxr showed no acute process. Abdominal US revealed fatty liver. Less common however could be related to NSAIDs side effect. ddx includes chronic venous stasis disease, pulmonary hypertension, renal or liver disease, related to his hypothyroidism. #Bilateral lower extremity edema and 22 lbs weight gain Doppler bilateral lower extremities to rule out DVT/obstruction- RULED OUT Liver function tests WNL Thyroid function tests --> TSH 3.9, increase Synthroid to 75 mcq Prothrombin time 2D echocardiogram--> LVH, diastolic dysfunction. Lasix 20 mg every other day #Fatty liver LFTs and coags are okay. Encourage weight loss #Hypothyroidism Synthroid 50 mcg daily for now, may need to adjust based on TFTs especially since he is on [place]. Increase to 75 mcg daily #HTN continue lisinopril 10mg daily #HLD continue Lipitor 10 check CK levels--> WNL #Bipolar disorder/depression continue Cymbalta 60, Depakote 250 mg TID, [place] 300 mg QD, Abilify 5 mg daily check Depakote and lithium levels currently stable #Chronic lower back pain continue Tramadol Hold NSAIDs vte ppx:SCD and heparin subq q12 hr Diet: Low salt SW consult for placement On exam today he is in no distress, alert and oriented x4. I spent 40 minutes on this encounter. Greater than 50% spent on counselling and care coordination. Plan of care discussed with patient, ED physician, and his PCP Dr. Edgar Graves. Discharge Medications New Medications: Furosemide* (Lasix*) 20 Mg Tablet 20 MG ORAL EVERY OTHER DAY for 30 Days, #15 TAB Levothyroxine Sodium (Levothyroxine Sodium) 175 Mcg Tablet 75 MCG ORAL DAILY for 30 Days, #30 TAB Take in the morning on an empty stomach, at least 30 minutes before food. Continued Medications: Aripiprazole* (Abilify*) 5 Mg Tablet 5 MG ORAL DAILY for bipolar, TAB 0 Refills (This prescription has been renewed) Atorvastatin Calcium* (Atorvastatin Calcium*) 20 Mg Tablet 20 MG ORAL BEDTIME for HLD, TAB (This prescription has been renewed) Divalproex Sodium* (Depakote*) 250 Mg Tablet.dr 250 MG PO TID for 30 Days, TAB Duloxetine Hcl* (Cymbalta*) 30 Mg Capsule.dr 30 MG ORAL DAILY for 30 Days, CAP Tramadol Hcl* (Ultram*) 50 Mg Tablet 50 MG ORAL Q6H PRN for For Pain, #12 TAB 0 Refills (This prescription has been renewed) Discharge Condition Upon Discharge: stable Discharge Disposition Patient was discharged to home Discharge Diagnoses: (1) Diastolic CHF (2) Bilateral lower extremity edema (3) Obesity, morbid, BMI 40.0-49.9 (4) Weakness (5) HLD (hyperlipidemia) (6) HTN (hypertension) (7) Hypothyroidism (8) Bipolar disorder Darrius Fleming M.D. May 07, 2019 15:49
--- NOTE | 2019-05-07 16:09 | NUR ---
NURSE NOTES: DISCHARGE HOME WITH INSTRUCTIONS. PERSONAL BELONGINGS NOTED. REMOVED IV HEPLOCK. IN STABLE CONDITION. TEACHING IMPLEMENTED. VERIFIED HOME ADDRESS STATED ON THE CASE ASSEMBLER'S NOTE. [facility] PROVIDED TRANSPORTATION.
== END 2019-05-07 16:04 | disposition home or self-care (01) ==
LOC: EMR 13:10 → OBSVTOIN 13:20 → INTOOBSV 13:20 → 4E 13:20 → EDBEDREQ 17:07
DX: I11.0 Hypertensive heart disease with heart failure (principal); I50.30 Unspecified diastolic (congestive) heart failure; R60.0 Localized edema; E03.9 Hypothyroidism, unspecified; E78.5 Hyperlipidemia, unspecified; F31.9 Bipolar disorder, unspecified; F32.9 Major depressive disorder, single episode, unspecified; G89.29 Other chronic pain; M54.5 Low back pain; E66.01 Morbid (severe) obesity due to excess calories; Z68.41 Body mass index [BMI] 40.0-44.9, adult; R53.1 Weakness; Z79.899 Other long term (current) drug therapy; Z88.8 Allergy status to other drugs, medicaments and biological substances; N28.1 Cyst of kidney, acquired
CPT/HCPCS: 36415 ×2; 71045; 76700; 80053 ×2; 80061; 80164; 80178; 81003; 82550 ×2; 83880; 84439; 84443; 84484; 85025 ×2; 85610; 87081 ×2; 93005; 93306; 93970; 96374; 97116; 97161; 99285; J1644; J1940; J7030